=== PATIENT | female | born 1960 | race Caucasian/White ===

== ENCOUNTER 2025-04-27 06:32 | Day surgery (SDC) | payer MEDICAID, OTHER ==
[2025-04-27] MEDS ORDERED: Propofol 200 MG/20 ML SDV ONE ×2 (07:02→08:04)
[2025-04-27] MEDS ORDERED: fentaNYL 50 MCG/ML SDV ONE (07:02)
[2025-04-27] MEDS: Lactated Ringers 1,000 ML IV SCH (07:17)
== END 2025-04-27 09:23 | disposition home or self-care (01) ==
LOC: JP.SDS 06:32
PROVIDERS: ATTEND Surgery
DX: Z12.11 Encounter for screening for malignant neoplasm of colon (principal); K57.30 Diverticulosis of large intestine without perforation or abscess without bleeding
CPT/HCPCS: 00812; 45378; J2704; J3010; J7120